=== PATIENT | female | born 1965 | race Caucasian/White ===

== ENCOUNTER 2021-03-16 10:17 | Day surgery (SDC) | payer OTHER, SELFPAY ==
[~2021-03-16] VITALS: Ht 134.6 cm; Wt 83.9 kg
[2021-03-16] MEDS ORDERED: fentaNYL citrate 0.05 MG/ML VIAL ONE (13:19)
[2021-03-16] MEDS ORDERED: LIDOCAINE 2% 100 MG/5 ML UJET TP ONE ×2 (13:19→13:50)
[2021-03-16] MEDS ORDERED: fentaNYL citrate 0.05 MG/ML VIAL IVP ONE (13:50)
== END 2021-03-16 14:25 | disposition home or self-care (01) ==
LOC: MDS 10:17 → MMU 10:18 → MDS 14:25
PROVIDERS: ATTEND Internal Medicine Gastroenterology
DX: Z12.11 Encounter for screening for malignant neoplasm of colon (principal); K57.30 Diverticulosis of large intestine without perforation or abscess without bleeding; I10 Essential (primary) hypertension; E11.9 Type 2 diabetes mellitus without complications; E78.5 Hyperlipidemia, unspecified; F32.9 Major depressive disorder, single episode, unspecified; Z79.82 Long term (current) use of aspirin; Z20.828 Contact with and (suspected) exposure to other viral communicable diseases; Z79.84 Long term (current) use of oral hypoglycemic drugs; Z79.899 Other long term (current) drug therapy
CPT/HCPCS: 45378; J3010; U0003